=== PATIENT | female | born 2005 | race Caucasian/White ===

== ENCOUNTER 2024-11-28 14:38 | Emergency (ER) | payer OTHER, SELFPAY ==
[2024-11-28 14:59] VITALS: BP 123/87; PULSE 84; RESP 16; TEMP 36.9; O2SAT 100; BMI 22.1
--- NOTE | 2024-11-28 15:03 | ED_ITS ---
HPI - General Adult General Chief complaint: GI Bleed Stated complaint: blood in stool Time Seen by Provider: 11/28/24 19:32 Source: patient, family and old records reviewed Mode of arrival: ambulatory Limitations: no limitations History of Present Illness ED Provider: GRANT PEÑA narrative: 19 yo female with no PMH no recent travel, no thinners, no recent antibiotic use, no sick contacts or food exposures woke up at 4am with cramping abdominal pain then had some nausea and diarrhea went back to bed woke up this AM had a few bouts of diarrhea and saw some blood in it. No fam hx of IBD MD complaint: rectal bleeding Onset (ago): hour(s) (this AM) Location: abdomen Radiation: non-radiation Severity: mild Pain Consistency: intermittent Relieving factors: none Exacerbating factors: none Associated symptoms: other (loose stools with blood) Treatments prior to arrival: none Related Data Allergies Allergy/AdvReac Type Severity Reaction Status Date / Time No Known Allergies Allergy Verified 11/28/24 15:02 Review of Systems 2 Review of Systems: Constitutional : No Fever, No Chills, No Fatigue ENT/Mouth : No sore throat, No Rhinorrhea Eyes: No Eye Pain, No Swelling, No Redness Cardiovascular : No Chest Pain, No SOB, No Dyspnea on Exertion Respiratory : No Cough, No Sputum Gastrointestinal : No Nausea, No Vomiting, pos Diarrhea, pos abdominal Pain, pos hematochezia Genitourinary : No Dysuria, No Urinary Frequency, No Hematuria, Musculoskeletal : No joint pain, No Myalgias, No Joint Swelling Skin : No Skin Lesions, No rash Neuro : No Weakness, No Numbness, No Dizziness, no Headache All other systems reviewed and are negative [facility] Past Medical History Attestation statement: The following information was validated with the patient. Source: obtained from family Medical History (Updated 11/29/24 @ 00:00 by Landry Gold) No pertinent past medical history Social History Social History (Updated 11/28/24 @ 21:05 by Bhakti Thompson DO) Patient Tobacco Use Status: Never used Tobacco Smoked in Last 30 Days: No Use of substances other than those prescribed or required for medical reasons: No Advance Directives: No Advance Directives Information Provided: Yes Do you have a plan to hurt others: No Plan Patient : Yes Physical Exam ED Vital Signs: Vital Signs - 24 hr 11/28/24 14:59 02/02/25 21:00 11/28/24 21:04 Temperature 98.5 F 98.4 F 98.4 F Pulse Rate 84 74 74 Respiratory Rate 16 18 18 Blood Pressure 123/87 110/78 110/78 Pulse Oximetry 100 98 98 Oxygen Delivery Method Room Air Room Air Room Air BMI result Body Mass Index 22.1 Appearance: Alert. Oriented X3. No acute distress. Eyes: Pupils equal, round and reactive to light. ENT: Pharynx normal. Neck: Normal inspection. Neck supple. CVS: Normal heart rate and rhythm. Pulses normal. Respiratory: No respiratory distress. Breath sounds normal. Abdomen: Soft and nontender. Rectal: normal no signs of blood Myra recreational therapy technician present Skin: Skin warm and dry. Normal skin color. Normal skin turgor. Extremities: No lower extremity edema. No calf ttp Neuro: Oriented X 3. No motor deficit. No sensory deficit. CN2-12 intact Course Course Course Narrative: RME: 19 yold female presents to the ED for lower abdominal pain with blood in stool since 4am. patient denies any recent trauma, fever, or chills, labs ordered Medical Decision Making Medical Decision Making [facility] Narrative: 19 yo female no PMH not on thinners here with c/o resolved lower abdominal pain and had some bleeding at this time no fam hx of UC or Crohns I spoke to the mom and patient about CT scan for colitis/IBD though she has no pain on exam and guiac negative they want to wait and see if her symptoms return and will follow up with PCP - this is reasonable. Differential Diagnosis Differential Diagnoses: The differential diagnosis associated with the presentation includes colitis, enteritis, viral syndrome, IBD Admission/Observation Consideration of admission/observation: Escalation of care including admission/observation considered cbc negative no bouts here guiac negative refusese CT scan at this time wait and see bland diet follow up with PCP Lab Data MDM Lab Attestation statement: I reviewed the patient's lab results. 11/28/24 15:33 11/28/24 15:33 Labs: Lab Results 11/28/24 11/28/24 Range/Units 15:33 20:24 WBC 10.0 (4.8-10.8) X10*3/uL RBC 4.52 (4.20-5.50) X10*6/uL Hgb 12.5 (12.0-16.0) g/dl Hct 37.3 (37.0-47.0) % MCV 82.5 (80.0-98.0) fL MCH 27.7 (27.0-33.0) pg MCHC 33.5 (31.0-35.0) g/dl RDW 14.0 (11.0-16.0) % Plt Count 242 (160-400) X10*3/uL MPV 11.3 (9.4-12.3) fL Immature Gran % (Auto) 0.2 (0.0-0.4) % Neut % (Auto) 77.0 H (45-73) % Lymph % (Auto) 17.6 L (20-40) % [facility] % (Auto) 4.4 (2-11) % Eos % (Auto) 0.6 (0-4) % Baso % (Auto) 0.2 (0-2) % Lymph # (Auto) 1.8 (1.2-4.9) X10*3/uL [facility] # (Auto) 0.4 (0.1-1.2) X10*3/uL Eos # (Auto) 0.1 (0.0-0.4) X10*3/uL Baso # (Auto) 0.0 (0.0-0.2) X10*3/uL Abs Immat Gran (auto) 0.02 (0.00-0.03) X10*3/uL Absolute Neuts (auto) 7.7 (2.0-8.3) x10*3/uL Absolute Nucleated RBC 0.000 (0.0-0.012) X10*3/uL Nucleated RBC % (auto) 0.0 (0.0-0.2) /100WBC PT 11.8 (10.9-12.4) SEC INR 1.0 (0.9-1.1) APTT 35.0 (26.0-36.8) SEC Sodium 141 (135-145) mmol/L Potassium 4.3 (3.3-5.1) mmol/L Chloride 108 (96-108) mmol/L Carbon Dioxide 26 (22-29) mmol/L Anion Gap 13 (12-20) BUN 17 H (9-16) mg/dL Creatinine 0.61 (0.5-1.4) mg/dL Estim Creat Clear Calc 120.6 Estimated GFR > 60 Random Glucose 99 (60-115) mg/dL Calcium 9.5 (8.4-10.2) mg/dL Total Bilirubin 1.0 (0.0-1.0) mg/dL AST 21 (5-31) U/L ALT 15 (0-31) U/L Alkaline Phosphatase 57 (39-117) U/L Total Protein 7.9 (6.5-8.0) g/dL Albumin 4.3 (3.5-5.0) g/dL Lipase 18 (8-78) U/L Beta HCG, Quant < 2 mIU/mL Urine Color Yellow Urine Appearance Clear Urine pH 6.5 (5.0-9.0) Ur Specific [place] 1.015 (1.005-1.025) Urine Protein Negative (Neg-Trace) mg/dL Urine Glucose (UA) Negative (Negative) mg/dL Urine Ketones Negative (Negative) mg/dL Urine Blood Small (1+) H (Negative) Urine Nitrite Negative (Negative) Ur Leukocyte Esterase Trace H (Negative) Urine RBC 6-10 H (0-2) /HPF Urine WBC 0-5 (0-5) /HPF Ur Squamous Epith Cells 0-2 (0-2) /HPF Urine Bacteria None Seen (None Seen) Hyaline Casts 0-2 (0-2) /LPF Stool Occult Blood NEGATIVE (NEGATIVE) Independent Historian Clinical information obtained from an independent historian. History obtained from or confirmed by: Parent External Record Review External record reviewed: Outpatient record Discharge Plan Discharge Clinical Impression: Lower abdominal pain, Bright red rectal bleeding Patient Disposition: Home, Self-Care Instructions: Rectal Bleeding (ED), Abdominal Pain (ED) Additional Instructions: bland diet for 48 hours return for fevers, pain, worsening bleeding or any other concerns avoid beets Referrals: [facility] [Provider Group] Interventions: ED Discharge Assessment Last Done: 11/28/24 21:04 Discharge Date/Time: 11/28/24 21:05 Print Language: Upper Sorbian
[2024-11-28 15:40] LABS: MANUAL DIFF FLAG NO
[2024-11-28 15:53] LABS: Basophils Percent Auto 0.2 % (0-2); Eosinophils Absolute Auto 0.1 X10*3/uL (0.0-0.4); Eosinophils Percent Auto 0.6 % (0-4); Hematocrit 37.3 % (37.0-47.0); Hemoglobin 12.5 g/dl (12.0-16.0); Imm Gran Abs Auto 0.02 X10*3/uL (0.00-0.03); Imm Gran Pct Auto 0.2 % (0.0-0.4); Lymphocytes Absolute Auto 1.8 X10*3/uL (1.2-4.9); Lymphocytes Percent Auto 17.6 % (20-40); Mean Corpuscular HGB Conc 33.5 g/dl (31.0-35.0); Mean Corpuscular Hemoglobin 27.7 pg (27.0-33.0); Mean Corpuscular Volume 82.5 fL (80.0-98.0); Mean Platelet Volume 11.3 fL (9.4-12.3); Monocytes Absolute Auto 0.4 X10*3/uL (0.1-1.2); Monocytes Percent Auto 4.4 % (2-11); Neutrophils Absolute Auto 7.7 x10*3/uL (2.0-8.3); Platelet Count 242 X10*3/uL (160-400); Red Blood Count 4.52 X10*6/uL (4.20-5.50)
[2024-11-28 16:07] LABS: Alanine Aminotransferase 15 U/L (0-31); Albumin Level 4.3 g/dL (3.5-5.0); Aspartate Amino Transferase 21 U/L (5-31); Blood Urea Nitrogen 17 mg/dL (9-16); Calcium 9.5 mg/dL (8.4-10.2); Carbon Dioxide 26 mmol/L (22-29); Chloride 108 mmol/L (96-108); Creatinine Clr Calc Pharmacy 120.6; Estimated Glomerular Filt Rate > 60; Glucose Random 99 mg/dL (60-115); HCG Quantitative < 2 mIU/mL; Lipase 18 U/L (8-78); Potassium 4.3 mmol/L (3.3-5.1); Sodium 141 mmol/L (135-145); Total Protein 7.9 g/dL (6.5-8.0)
[2024-11-28 16:14] LABS: Prothrombin Time 11.8 SEC (10.9-12.4)
[2024-11-28 16:52] LABS: Alkaline Phosphatase 57 U/L (39-117); Anion Gap 13 (12-20)
--- OUTSIDE RECORDS SUMMARY | 2024-11-28 19:59 | XMS_ITS | Clinical Summary ---
Author Organization [facility] Address [address] [place] [address] Care Team Providers Care Account Review Specialist Name Role Phone Skye Sanchez Primary Care Provider Unavaila ble Active Problems Problem Noted Date Diagnosed Date Pes planus 08/29/2016 Immunizations Name Administration Dates Next Due DTaP 05/26/2008, 4,2003,2003, HPV9 (Gardasil 9) 06/07/2020 Hep A - 07/15/2011,07/28/2010 Hep B (adult) 2003,2003,2003 Hib (PRP-OMP) 09/12/2004,2003,2003 ,2003 IPV 05/26/2008,2003,2003 ,2003 MMR 05/26/2008,06/27/2004 Meningococcal ACWY (Menactra) 06/07/2020, 014 PCV-7 09/12/2004,2003,2003 ,2003 Tdap 08/25/2014 Varicella 05/26/2008,06/27/2004 Social History Tobacco Use Types Packs/Day Years Used Date Smoking Tobacco: Never Assessed Comments:Smoking Status:No c urrent tobacco use Comments Unknown Sex and Gender Information Value Date Recorded Sex Assigned at Not on file Legal Sex Female 8:39 PM EDT Gender Identity Not on file Sexual Orientation Not on file Last Filed Vital Signs Vital Sign Reading Time Taken Comments Blood Pressure 120/70 06/07/2020 2:51 PM EDT Pulse 76 06/07/2020 2:51 PM EDT Temperature 37.1 ??C (98.8 ??F) 11/16/2014 8:31 AM ES T Temporal Respiratory Rate - - Oxygen Saturation 99% 07/21/2013 9:43 AM EDT Inhaled Oxygen Concentration - - Weight 52.6 kg (116 lb 0.1 oz) 06/07/2020 2:51 P M EDT Height 160 cm (5' 3 ) 06/07/2020 2:51 PM EDT Body Mass Index 20.55 06/07/2020 2:51 PM EDT Plan of Treatment Health Maintenance Due Date Last Done Comments Hepatitis C Screening 2003 Chlamydia 2019 Pap Smear 2019 HPV Vaccine (2 - 3-dose series) 07/05/2020 06/07/2020 COVID-19 Vaccine (2023- season) 2024 Influenza (#1) 2024 DTaP/Tdap/Td (7 - Td or Tdap) 08/25/2024 08/25/2014, 05/26/2008, 09/12/2004, Additional history exists Zoster (Shingrix) (1 of 2) 2053 05/26/2008, Hep B Completed 2003, 09/26, 2003 Hib Completed 09/12/2004, 11/28, 2003, Additional history exists Pneumococcal Aged Out 09/12/2004, 11/28, 2003, Additional history exists No longer eligible based on patient's age to complete this topic MMR Completed 05/26/2008, 06/27/2004 Polio (IPV/OPV) Completed 05/26/2008, 11/28, 2003, Additional history exists Varicella Completed 05/26/2008, 06/27/2004 Hep A Completed 07/15/2011, 07/28/2010 Meningococcal ACWY Completed 06/07/2020, 08/25/2014 Physical Discontinued 06/07/2020, 01/2019, 09/29/2017, Additional history exists Care Teams Account Review Specialist Relationship Specialty Start Date End Date Skye Sanchez PCP - General 06/02/23
--- OUTSIDE RECORDS SUMMARY | 2024-11-28 19:59 | XMS_ITS | Encounter Summary ---
Author Organization [facility] Address [address] [place] [id number] Care Team Providers Care Bleacher Pulp Name Role Phone Augusta Barton APRN Primary Care Provider [phone] Luann Camargo DO Unavailable [phone] Luann Camargo DO Primary Care Provider [phone] Luann Camargo DO Unavailable [phone] Encounter Details Date Type Department Care Team (Late st Contact Info) Description 10/16/2021 Scanned Document [facility] [address] [place] [address] Augusta Barton APRN [address] [address] Social History Tobacco Use Types Packs/Day Years Used Date Smoking Tobacco: Never Smokeless Tobacco: Never Alcohol Use Standard Drinks/Week Comments Never 0 (1 standard drink = 0.6 oz pur e alcohol) PHQ-2 Answer Date Recorded PHQ-2 Total Score 0 10/16/2021 Sex and Gender Information Value Date Recorded Sex Assigned at Female 05/04/2024 2:27 PM EDT Gender Identity Not on file Sexual Orientation Not on file COVID-19 Exposure Response Date Recorded In the last month, have you been in contact with someone who was confirmed or suspected to have Coronavirus / COVID-19? No / Unsure 10/16/2021 11:04 AM EST documented as of this encounter Plan of Treatment Upcoming Encounters Date Type Department Care Team (Late st Contact Info) Description 04/25/2025 2:45 PM EDT Office Visit [facility] [address] [place] [address] Luann Camargo DO [address] [place] [address] documented as of this encounter Visit Diagnoses Not on filedocumented in this encounter Care Teams Bleacher Pulp Relationship Specialty Start Date End Date Augusta Barton APRN PCP - General Internal Medicine 10/16/21 04/21/23 Luann Camargo DO [address] [place] [address] PCP - [employer] Attributed 10/27/21 05/26/23 Luann Camargo DO [address] [place] [id number] PCP - General Family Medicine 04/22/23 Luann Camargo DO [address] [place] [id number] PCP - [employer] Attributed 10/27/23 documented as of this encounter
--- OUTSIDE RECORDS SUMMARY | 2024-11-28 19:59 | XMS_ITS | Encounter Summary ---
Author Organization [facility] Address [address] [place] [address] Care Team Providers Care Automotive Glass Technician Name Role Phone Luann Camargo DO Unavailable [phone] Luann Camargo DO Primary Care Provider [phone] Luann Camargo DO Unavailable [phone] Encounter Details Date Type Department Care Team (Late st Contact Info) Description 05/15/2023 Scanned Document [facility] Primary Care, Scan Social History Tobacco Use Types Packs/Day Years Used Date Smoking Tobacco: Never Smokeless Tobacco: Never Alcohol Use Standard Drinks/Week Comments Never 0 (1 standard drink = 0.6 oz pur e alcohol) Social Connection and Isolat ion Panel [NHANES] Answer Date Recorded In a typical week, how many times do you talk on the phone with family, friends, or neighbors? More than three times a week 04/15/2023 How often do you get togethe r with friends or relatives? More than three times a week 04/15/2023 How often do you attend chur ch or amish services? Patient declined 04/15/2023 Do you belong to any clubs o r organizations such as baptism groups, unions, fraternal or athletic groups, or school groups? Yes 04/15/2023 How often do you attend meet ings of the clubs or organizations you belong to? More than 4 times per year 04/15/2023 Are you , , di vorced, , never , or living with a partner? Never 04/15/2023 AUDIT-C Answer Date Recorded Q1: How often do you have a drink containing alcohol? Never 04/22/2023 Q2: How many drinks containi ng alcohol do you have on a typical day when you are drinking? Patient does not drink Q3: How often do you have si x or more drinks on one occasion? Never 04/22/2023 Overall Financial Resource Strain (CARDIA) Answe r Date Recorded How hard is it for you to pa y for the very basics like food, housing, medical care, and heating? Not very hard 04/15/2023 PHQ-2 Answer Date Recorded PHQ-2 Total Score 0 04/22/2023 [facility] - Occupational Stress Questionnaire Answer Date Recorded Do you feel stress - tense, restless, nervous, or anxious, or unable to sleep at night because your mind is troubled all the time - these days? Not at all 04/15/2023 Hunger Vital Sign Answer Date Recorded Within the past 12 months, y ou worried that your food would run out before you got the money to buy more. Never true 04/15/20 Within the past 12 months, t he food you bought just didn't last and you didn't have money to get more. Never true 04/15/2023 PRAPARE - Transportation Answer Date Re corded In the past 12 months, has l ack of transportation kept you from medical appointments or from getting medications? No 03/28 In the past 12 months, has l ack of transportation kept you from meetings, work, or from getting things needed for daily living? No 04/15/2023 Physical Activity Answer Date Recorded On average, how many days pe r week do you engage in moderate to strenuous exercise (like a brisk walk)? 0 04/15/2023 On average, how many minutes do you exercise per day at this level? 0 04/15/2023 Education Answer Date Recorded What is the highest level of school you have completed or the highest degree you have received? 12th grade 04/15/2023 Sex and Gender Information Value Date Recorded Sex Assigned at Female 05/04/2024 2:27 PM EDT Gender Identity Not on file Sexual Orientation Not on file COVID-19 Exposure Response Date Recorded In the last 10 days, have yo u been in contact with someone who was confirmed or suspected to have Coronavirus/COVID-19? No / Unsure 04/22/2023 12:11 PM EDT documented as of this encounter Plan of Treatment Upcoming Encounters Date Type Department Care Team (Late st Contact Info) Description 04/25/2025 2:45 PM EDT Office Visit [facility] [address] [facility] [address] Luann Camargo DO [address] [place] [address] documented as of this encounter Visit Diagnoses Not on filedocumented in this encounter Care Teams Automotive Glass Technician Relationship Specialty Start Date End Date Luann Camargo DO [address] [place] [address] PCP - [employer] Attributed 10/27/21 05/26/23 Luann Camargo DO [address] [place] [address] PCP - General Family Medicine 04/22/23 Luann Camargo DO [address] [place] [address] PCP - [employer] Attributed 10/27/23 documented as of this encounter
[2024-11-28 20:35] LABS: Appearance Urine Clear; Color Urine Yellow; Glucose Urine UA Negative (Negative); Leukocyte Esterase Urine Trace (Negative); Nitrite Urine Negative (Negative); PH 6.5 (5.0-9.0); Specific Gravity - Urine 1.015 (1.005-1.025); UMIC TRIGGER UACC YES; Urine Blood Small (1+) (Negative); Urine Ketones Negative (Negative); Urine Protein Negative (Neg-Trace)
[2024-11-28 20:36] LABS: OBS Int Ctl Valid YES; OBS1 NEGATIVE (NEGATIVE)
[2024-11-28 20:38] LABS: Bacteria Urine None Seen (None Seen); Hyaline Casts Urine 0-2 /LPF (0-2); Squamous Epithelial Cell Urine 0-2 /HPF (0-2); WBC Urine 0-5 /HPF (0-5)
[2024-11-28 21:00] VITALS: BP 110/78; PULSE 74; RESP 18; TEMP 36.9; O2SAT 98
[2024-11-28 21:04] VITALS: BP 110/78; PULSE 74; RESP 18; TEMP 36.9; O2SAT 98
== END 2024-11-28 21:05 | disposition home or self-care (01) ==
PROVIDERS: Physician Assistant; Emergency Provider Emergency Medicine
DX: R10.2 Pelvic and perineal pain (principal); K62.5 Hemorrhage of anus and rectum; Z79.899 Other long term (current) drug therapy
CPT/HCPCS: 36415; 80053; 81001; 82272; 83690; 84702; 85025; 85610; 85730; 99283; 99284